=== PATIENT | female | born 1985 | race Caucasian/White ===

== ENCOUNTER 2017-05-22 05:58 | Inpatient (IN) | payer MEDICAID ==
[~2017-05-22 05:58] MED LIST: Lactated Ringers 1,000 ML IV SCH; Sodium Chloride 0.9% 10 ML Syringe FLUSH PRN
[2017-05-22] MEDS ORDERED: Metoclopramide 10 MG/2 ML SDV IVPUSH ONE (06:00)
[2017-05-22] MEDS ORDERED: Oxytocin/Lactated Ringers 10 UNIT/1,000 ML BAG IV SCH (06:00)
[2017-05-22] MEDS ORDERED: ceFAZolin 2 GM in Premix Bag 1 BAG IV ONE (06:00)
[2017-05-22] MEDS ORDERED: Citric Acid/Sodium Citrate Solution 30 ML Cup PO ONE (06:00)
[2017-05-22] MEDS ORDERED: Bupivacaine 0.5% 30 ML SDV ONE (07:04)
[2017-05-22] MEDS ORDERED: ceFAZolin 1 GM Vial ONE (07:14)
[2017-05-22] MEDS ORDERED: Morphine PF 10 MG/10 ML SDV ONE (07:14)
[2017-05-22] MEDS ORDERED: Oxytocin 10 Units/1 ML SDV ONE ×2 (07:21→08:34)
[2017-05-22] MEDS ORDERED: Lactated Ringers 1,000 ML ONE (07:52)
[2017-05-22] MEDS ORDERED: Ketorolac 30 MG/ML SDV ONE (08:39)
[2017-05-22] MEDS ORDERED: fentaNYL 100 MCG/2 ML SDV IVPUSH PRN (08:57)
[2017-05-22] MEDS ORDERED: diphenhydrAMINE 50 MG/ML SDV IVPUSH PRN ×2 (08:57→11:25)
--- NOTE | 2017-05-22 08:59 | PCM.POSTAN ---
POST ANESTHESIA ASSESSMENT - MENTAL STATUS Mental Status: Alert, Oriented - VITAL SIGNS Pulse Rate: 88 SaO2: 98 Resp Rate: 16 Blood Pressure: 101/64 Temperature: 36.3 C - RESPIRATORY Respiratory Status: Respiratory Rate WNL, Airway Patent, O2 Saturation Stable, Supplemental Oxygen - CARDIOVASCULAR CV Status: Pulse Rate WNL, Blood Pressure Stable - GASTROINTESTINAL GI Status: No Symptoms - PAIN Pain Score: 0 - POST OP HYDRATION Hydration Status: Adequate & Stable - OBSERVATIONS Free Text/Narrative:: no anesthesia complications noted
--- NOTE | 2017-05-22 09:07 | PCM.OPNOTE ---
- General Post-Op/Procedure Note Date of Surgery/Procedure: 05/22/17 Operative Procedure(s): repeat section Findings: Viable male, Weight 6#15oz, normal uterus tubes ovaries, vertex at 0814 Pre Op Diagnosis: prior , desires repeat Post-Op Diagnosis: Same Anesthesia Technique: Spinal Primary Surgeon: Amara Davis Anesthesia Provider: Yaya Oakley Ultrasonic Seaming Machine Operator: Eli Freed Ultrasonic Seaming Machine Operator: Darcy Blackwell Fluid Replacement, Intraop: 2,500 Output, Urine Amount: 30 Complications: None Condition: Good Free Text/Narrative:: The patient was taken to the operating room where epidural anesthesia was dosed to surgical levels without difficulty. The patient was prepped and draped in the usual sterile fashion in the dorsal supine position with a leftward tilt. A Pfannenstiel skin incision was made with the scalpel and carried through to the underlying layer of fascia. The fascia was incised in the midline and extended laterally using Gonzalez scissors. Mariya clamps were used to elevate the superior aspect of the fascial incision, which was elevated, and the underlying rectus muscles were dissected off bluntly and using Gonzalez scissors. Attention was then turned to the inferior aspect of the fascial incision, which in similar fashion was grasped with Mariya clamps, elevated, and the underlying rectus muscles were dissected off bluntly and using the gonzalez. The rectus muscles were dissected in the midline. The peritoneum was entered bluntly; this incision was extended superiorly and inferiorly with good visualization of the bladder. The bladder blade was inserted. The vesicouterine peritoneum was identified and entered sharply using Metzenbaum scissors. This incision was extended laterally and the bladder flap was created digitally. The bladder blade was reinserted. The lower uterine segment was incised in a transverse fashion using the scalpel and with digital traction. Clear fluid was noted. The was subsequently delivered by flexing the head to the incision. Body and shoulders followed without difficulty. The cord was clamped and cut. The infant was subsequently handed to the awaiting deputy district customs director whose presence had been requested.. The placenta was delivered spontaneously intact with a three-vessel cord noted. The uterus was exteriorized and cleared of all clots and debris. The uterine incision was repaired in 2 layers using 0 monocryl. Hemostasis was visualized. Hemostasis was visualized bilaterally. The uterus was returned to the abdomen. The uterine incision was reexamined and it was noted to be hemostatic. The pelvis was copiously irrigated. The fascia was closed with 1 PDS suture, and the skin was closed with 3-0 monocryl. Sponge, lap, and instrument counts were correct x2. The patient was stable at the completion of the procedure and was subsequently transferred to the recovery room in stable condition.
[2017-05-22] MEDS ORDERED: Naloxone 0.4 MG/ML SDV IVPUSH PRN (11:25)
[2017-05-22] MEDS ORDERED: ePHEDrine 50 MG/ML SDV IVPUSH PRN (11:25)
[2017-05-22] MEDS ORDERED: Lanolin 100% Cream 7 GM Tube TOP PRN (11:25)
[2017-05-22] MEDS: Lactated Ringers 1,000 ML IV SCH ×2 (12:15→16:03)
[2017-05-22] MEDS: Acetaminophen/oxyCODONE 325-5 MG Tab PO PRN ×3 (12:15→23:38)
[2017-05-22] MEDS: Ketorolac 30 MG/ML SDV IVPUSH SCH ×2 (15:24→21:27)
[2017-05-23] MEDS: Ketorolac 30 MG/ML SDV IVPUSH SCH (03:33)
[2017-05-23] MEDS: Acetaminophen/oxyCODONE 325-5 MG Tab PO PRN ×2 (05:41→12:45)
--- NOTE | 2017-05-23 08:59 | PCM.PNPP ---
- General Info Date of Service: 05/23/17 - Review of Systems General: Reports: No Symptoms HEENT: Reports: No Symptoms Pulmonary: Reports: No Symptoms Cardiovascular: Reports: No Symptoms Gastrointestinal: Reports: No Symptoms Genitourinary: Reports: No Symptoms Musculoskeletal: Reports: No Symptoms Skin: Reports: No Symptoms Neurological: Reports: No Symptoms Psychiatric: Reports: No Symptoms - General Info Date of Service: 05/23/17 - Patient Data Vital Signs - Most Recent: Last Vital Signs Temp 36.5 C 05/23/17 03:59 Pulse 96 05/23/17 03:39 Resp 17 05/23/17 06:58 BP 103/63 05/23/17 03:37 Pulse Ox 98 05/23/17 06:58 Weight - Most Recent: 87.09 kg I&O - Last 24 Hours: Intake & Output 05/22/17 05/23/17 05/23/17 22:59 06:59 14:59 Intake Total 1480 Output Total 775 800 Balance 705 -800 Lab Results - Last 24 Hours: Laboratory Results - last 24 hr 05/23/17 Range/Units 05:50 WBC 8.40 (3.98-10.04) K/mm3 RBC 3.09 L (3.98-5.22) M/mm3 Hgb 7.9 L (11.2-15.7) gm/L Hct 26.0 L (34.1-44.9) % MCV 84.1 (79.4-94.8) fl MCH 25.6 (25.6-32.2) pg MCHC 30.4 L (32.2-35.5) g/dl RDW Std Deviation 41.2 (36.4-46.3) fL Plt Count 178 L (182-369) K/mm3 MPV 11.4 (9.4-12.3) fl Neut % (Auto) 71.5 H (34.0-71.1) % Lymph % (Auto) 19.5 (19.3-51.7) % Clinch % (Auto) 7.5 (4.7-12.5) % Eos % (Auto) 1.1 (0.7-5.8) Baso % (Auto) 0.2 (0.1-1.2) % Neut # (Auto) 6.00 (1.56-6.13) K/mm3 Lymph # (Auto) 1.64 (1.18-3.74) K/mm3 Clinch # (Auto) 0.63 H (0.24-0.36) K/mm3 Eos # (Auto) 0.09 (0.04-0.36) K/mm3 Baso # (Auto) 0.02 (0.01-0.08) K/mm3 Manual Slide Review Abnormal smear Med Orders - Current: Current Medications Diphenhydramine HCl (Benadryl) 25 mg IVPUSH Q6H PRN PRN Reason: Itching or Nausea Emollient Ointment (Lansinoh Hpa) 0 gm TOP ASDIRECTED PRN PRN Reason: Sore Nipples Ephedrine Sulfate (Ephedrine Sulfate) 5 mg IVPUSH SEECOMMENT PRN PRN Reason: Other Lactated Ringer's (Ringers, Lactated) 1,000 mls @ 125 mls/hr IV ASDIRECTED OSMEL Last Admin: 05/22/17 16:03 Dose: 125 mls/hr Ibuprofen (Motrin) 600 mg PO Q6H PRN PRN Reason: mild pain or fever Naloxone HCl (Narcan) 0.1 mg IVPUSH SEECOMMENT PRN PRN Reason: Respiratory Depression Oxycodone/Acetaminophen (Percocet 325-5 Mg) 2 tab PO Q6H PRN PRN Reason: Pain (moderate 4-6) Last Admin: 05/23/17 05:41 Dose: 2 tab Discontinued Medications Bupivacaine HCl (Marcaine 0.5%) Confirm Administered Dose 30 ml .ROUTE .STK-MED ONE Stop: 05/22/17 07:05 Last Admin: 05/22/17 09:48 Dose: 20 ml Cefazolin Sodium (Ancef) Confirm Administered Dose 2 gm .ROUTE .STK-MED ONE Stop: 05/22/17 07:15 Citric Acid/Sodium Citrate (Bicitra Solution) 30 ml PO ONETIME ONE Stop: 05/22/17 06:01 Diphenhydramine HCl (Benadryl) 25 mg IVPUSH Q6H PRN PRN Reason: Itching Stop: 05/22/17 11:00 Fentanyl (Sublimaze) 50 mcg IVPUSH Q5M PRN PRN Reason: PAIN Stop: 05/22/17 11:00 Cefazolin Sodium/Dextrose 2 gm (/ Premix) 50 mls @ 100 mls/hr IV ONETIME ONE Stop: 05/22/17 06:29 Lactated Ringer's (Ringers, Lactated) 1,000 mls @ 999 mls/hr IV ASDIRECTED [facility] Oxytocin/Lactated Ringer's (Pitocin In Lr 10 Units/1,000 Ml) 10 unit in 1,000 mls @ 100 mls/hr IV ASDIRECTED [facility] Lactated Ringer's (Ringers, Lactated) Confirm Administered Dose 1,000 mls @ as directed .ROUTE .STK-MED ONE Stop: 05/22/17 07:53 Ketorolac Tromethamine (Toradol) Confirm Administered Dose 30 mg .ROUTE .STK- MED ONE Stop: 05/22/17 08:40 Ketorolac Tromethamine (Toradol) 30 mg IVPUSH Q6H O[facility] Stop: 05/23/17 03:01 Last Admin: 05/23/17 03:33 Dose: 30 mg Metoclopramide HCl (Reglan) 10 mg IVPUSH ONETIME ONE Stop: 05/22/17 06:01 Morphine Sulfate (Duramorph Pf) Confirm Administered Dose 10 mg .ROUTE .STK-MED ONE Stop: 05/22/17 07:15 Oxytocin (Pitocin) Confirm Administered Dose 10 unit .ROUTE .STK-MED ONE Stop: 05/22/17 07:22 Oxytocin (Pitocin) Confirm Administered Dose 10 unit .ROUTE .STK-MED ONE Stop: 05/22/17 08:35 Sodium Chloride (Saline Flush) 10 ml FLUSH ASDIRECTED PRN PRN Reason: Keep Vein Open - Infant Interaction Support Person: - Recovery Exam Fundal Tone: Firm Fundal Level: At Umbilicus Fundal Placement: Midline Lochia Amount: Scant, Small Lochia Color: Rubra/Red Perineum Description: Intact, Minimal Bruising/Swelling Bladder Status: Indwelling Catheter in Place - Exam General: Alert, Oriented HEENT: Pupils Equal Neck: Supple Lungs: Clear to Auscultation, Normal Respiratory Effort Cardiovascular: Regular Rate, Regular Rhythm GI/Abdominal Exam: Normal Bowel Sounds, Soft, Non-Tender, No Organomegaly, No Distention, No Abnormal Bruit, No Mass, Pelvis Stable Extremities: Normal Inspection, Normal Range of Motion, Non-Tender, No Pedal Edema, Normal Capillary Refill Skin: Warm, Dry, Intact Wound/Incisions: Healing Well Neurological: No New Focal Deficit Psy/Mental Status: Alert, Normal Affect, Normal Mood - Problem List Review Problem List Initiated/Reviewed/Updated: Yes - My Orders Last 24 Hours: My Active Orders 05/22/17 11:25 Communication Order [RC] PER UNIT ROUTINE Communication Order [RC] PER UNIT ROUTINE Communication Order [RC] PER UNIT ROUTINE Notify Provider Intake and Out [RC] ASDIRECTED Vital Signs [RC] Q1HR Acetaminophen/oxyCODONE [Percocet 325-5 MG] 2 tab PO Q6H PRN Lanolin [Lansinoh HPA] See Dose Instructions TOP ASDIRECTED PRN Naloxone [Narcan] 0.1 mg IVPUSH SEECOMMENT PRN diphenhydrAMINE [Benadryl] 25 mg IVPUSH Q6H PRN ePHEDrine [ePHEDrine Sulfate] 5 mg IVPUSH SEECOMMENT PRN Assess Lochia [WOMSER] Per Unit Routine Assess Uterine Involution [WOMSER] Per Unit Routine Medication Administration Instruction [OM.PC] Routine 05/22/17 12:00 Lactated Ringers [Ringers, Lactated] 1,000 ml IV ASDIRECTED 05/22/17 Lunch Regular Diet [DIET] 05/23/17 09:00 Ibuprofen [Motrin] 600 mg PO Q6H PRN - Assessment Assessment:: Doing great. Tearful. Normal lochia. Pain controlled. Tolerating diet. Voiding well. - Plan Plan:: Routine care.
--- NOTE | 2017-05-23 09:28 | PCM48HPAN ---
Post Anesthesia Note - EVALUATION WITHIN 48HRS OF ANESTHETIC Vital Signs in Normal Range: Yes Patient Participated in Evaluation: Yes Respiratory Function Stable: Yes Airway Patent: Yes Cardiovascular Function Stable: Yes Hydration Status Stable: Yes Pain Control Satisfactory: Yes Nausea and Vomiting Control Satisfactory: Yes Mental Status Recovered: Yes - COMMENTS/OBSERVATIONS Free Text/Narrative:: Patient up and walking around. Denies back pain, residual numbness and tingling in her legs, and headache. Satisfied with her pain control.
[2017-05-23] MEDS: Ibuprofen 600 MG Tab PO PRN ×2 (09:47→15:52)
--- NOTE | 2017-05-23 13:17 | PCM.DCSUM1 ---
Discharge Summary - Discharge Data Discharge Date: 05/23/17 Discharge Disposition: Home, Self-Care 01 Condition: Good - Patient Summary/Data Operative Procedure(s) Performed: repeat section Hospital Course: Term . Recovering well. Baby transferred to assumption for respiratory issues. Mom desires discharge. - Patient Instructions Diet: Usual Diet as Tolerated Activity: No Strenuous Activities Driving: Do Not Drive Wound/Incision Care: Keep Operative Site/Wound Site Clean and Dry Notify Provider of: Fever, Increased Pain, Swelling and Redness, Drainage, Nausea and/or Vomiting - Discharge Plan Prescriptions/Med Rec: Docusate Sodium [Colace] 100 mg PO BID #20 capsule Home Medications: Home Meds Acetaminophen/oxyCODONE [Percocet 325-5 MG] 2 tab PO Q6H PRN #0 tablet 05/23/17 [Rx] Docusate Sodium [Colace] 100 mg PO BID #20 capsule 05/23/17 [Rx] Ibuprofen [IJD: Ibuprofen] 600 mg PO Q6H PRN tablet 05/23/17 [Rx] Lanolin [Lansinoh HPA] 7 gm TOP ASDIRECTED PRN tube 05/23/17 [Rx] Patient Handouts: Depression and Baby Blues, Delivery, Care After, Breast Pumping Tips, [id number], Challenges and Solutions Referrals: Amara Davis MD [Physician] - (2 weeks, 6 weeks) - Patient Data Vitals - Most Recent: Last Vital Signs Temp 36.4 C 05/23/17 08:00 Pulse 93 05/23/17 08:00 Resp 14 05/23/17 08:00 BP 99/67 05/23/17 08:00 Pulse Ox 99 05/23/17 08:00 Weight - Most Recent: 87.09 kg I&O - Last 24 hours: Intake & Output 05/22/17 05/23/17 05/23/17 22:59 06:59 14:59 Intake Total 1480 2500 Output Total 775 800 30 Balance 705 -800 2470 Lab Results - Last 24 hrs: Laboratory Results - last 24 hr 05/23/17 Range/Units 05:50 WBC 8.40 (3.98-10.04) K/mm3 RBC 3.09 L (3.98-5.22) M/mm3 Hgb 7.9 L (11.2-15.7) gm/L Hct 26.0 L (34.1-44.9) % MCV 84.1 (79.4-94.8) fl MCH 25.6 (25.6-32.2) pg MCHC 30.4 L (32.2-35.5) g/dl RDW Std Deviation 41.2 (36.4-46.3) fL Plt Count 178 L (182-369) K/mm3 MPV 11.4 (9.4-12.3) fl Neut % (Auto) 71.5 H (34.0-71.1) % Lymph % (Auto) 19.5 (19.3-51.7) % Millard % (Auto) 7.5 (4.7-12.5) % Eos % (Auto) 1.1 (0.7-5.8) Baso % (Auto) 0.2 (0.1-1.2) % Neut # (Auto) 6.00 (1.56-6.13) K/mm3 Lymph # (Auto) 1.64 (1.18-3.74) K/mm3 Millard # (Auto) 0.63 H (0.24-0.36) K/mm3 Eos # (Auto) 0.09 (0.04-0.36) K/mm3 Baso # (Auto) 0.02 (0.01-0.08) K/mm3 Manual Slide Review Abnormal smear Med Orders - Current: Current Medications Diphenhydramine HCl (Benadryl) 25 mg IVPUSH Q6H PRN PRN Reason: Itching or Nausea Emollient Ointment (Lansinoh Hpa) 0 gm TOP ASDIRECTED PRN PRN Reason: Sore Nipples Ephedrine Sulfate (Ephedrine Sulfate) 5 mg IVPUSH SEECOMMENT PRN PRN Reason: Other Lactated Ringer's (Ringers, Lactated) 1,000 mls @ 125 mls/hr IV ASDIRECTED OSMEL Last Admin: 05/22/17 16:03 Dose: 125 mls/hr Ibuprofen (Motrin) 600 mg PO Q6H PRN PRN Reason: mild pain or fever Last Admin: 05/23/17 09:47 Dose: 600 mg Naloxone HCl (Narcan) 0.1 mg IVPUSH SEECOMMENT PRN PRN Reason: Respiratory Depression Oxycodone/Acetaminophen (Percocet 325-5 Mg) 2 tab PO Q6H PRN PRN Reason: Pain (moderate 4-6) Last Admin: 05/23/17 05:41 Dose: 2 tab Discontinued Medications Bupivacaine HCl (Marcaine 0.5%) Confirm Administered Dose 30 ml .ROUTE .STK-MED ONE Stop: 05/22/17 07:05 Last Admin: 05/22/17 09:48 Dose: 20 ml Cefazolin Sodium (Ancef) Confirm Administered Dose 2 gm .ROUTE .STK-MED ONE Stop: 05/22/17 07:15 Citric Acid/Sodium Citrate (Bicitra Solution) 30 ml PO ONETIME ONE Stop: 05/22/17 06:01 Diphenhydramine HCl (Benadryl) 25 mg IVPUSH Q6H PRN PRN Reason: Itching Stop: 05/22/17 11:00 Fentanyl (Sublimaze) 50 mcg IVPUSH Q5M PRN PRN Reason: PAIN Stop: 05/22/17 11:00 Cefazolin Sodium/Dextrose 2 gm (/ Premix) 50 mls @ 100 mls/hr IV ONETIME ONE Stop: 05/22/17 06:29 Lactated Ringer's (Ringers, Lactated) 1,000 mls @ 999 mls/hr IV ASDIRECTED [facility] Oxytocin/Lactated Ringer's (Pitocin In Lr 10 Units/1,000 Ml) 10 unit in 1,000 mls @ 100 mls/hr IV ASDIRECTED [facility] Lactated Ringer's (Ringers, Lactated) Confirm Administered Dose 1,000 mls @ as directed .ROUTE .STK-MED ONE Stop: 05/22/17 07:53 Ketorolac Tromethamine (Toradol) Confirm Administered Dose 30 mg .ROUTE .STK- MED ONE Stop: 05/22/17 08:40 Ketorolac Tromethamine (Toradol) 30 mg IVPUSH Q6H [facility] Stop: 05/23/17 03:01 Last Admin: 05/23/17 03:33 Dose: 30 mg Metoclopramide HCl (Reglan) 10 mg IVPUSH ONETIME ONE Stop: 05/22/17 06:01 Morphine Sulfate (Duramorph Pf) Confirm Administered Dose 10 mg .ROUTE .STK-MED ONE Stop: 05/22/17 07:15 Oxytocin (Pitocin) Confirm Administered Dose 10 unit .ROUTE .STK-MED ONE Stop: 05/22/17 07:22 Oxytocin (Pitocin) Confirm Administered Dose 10 unit .ROUTE .STK-MED ONE Stop: 05/22/17 08:35 Sodium Chloride (Saline Flush) 10 ml FLUSH ASDIRECTED PRN PRN Reason: Keep Vein Open *Q Meaningful Use (DIS) - VTE *Q VTE Criteria *Q: - Stroke *Q Stroke Criteria *Q: - AMI *Q AMI Criteria *Q:
[2017-05-23 14:26] VITALS: BP 107/72
== END 2017-05-23 15:55 | disposition home or self-care (01) | DRG 766 ==
LOC: JD.OB 05:58
PROVIDERS: ADMIT Obstetrics & Gynecology; ATTEND Obstetrics & Gynecology
PROC: 10D00Z1 Extraction of Products of Conception, Low, Open Approach (ICD-10-PCS; principal; 2017-05-22)
DX: O34.211 Maternal care for low transverse scar from previous cesarean delivery (principal); N85.8 Other specified noninflammatory disorders of uterus; Z3A.38 38 weeks gestation of pregnancy; Z37.0 Single live birth
CPT/HCPCS: 01961; 36415; 85025; A9270-GY; J0690; J1885; J2270; J2590; J7120

== ENCOUNTER 2018-05-02 05:23 | Inpatient (IN) | payer MEDICAID ==
[~2018-05-02 05:23] MED LIST changes: -Lactated Ringers 1,000 ML IV SCH
[2018-05-02] MEDS ORDERED: Metoclopramide 10 MG/2 ML SDV IVPUSH ONE (06:00)
[2018-05-02] MEDS: Lactated Ringers 1,000 ML IV SCH ×2 (06:12→07:01)
--- NOTE | 2018-05-02 06:40 | PCM.PREANE ---
Preanesthetic Assessment - Anesthesia/Transfusion/Family Hx Anesthesia History: Prior Anesthesia Without Reaction - Review of Systems General: No Symptoms Pulmonary: No Symptoms Cardiovascular: No Symptoms Gastrointestinal: No Symptoms Neurological: No Symptoms Other: Reports: None - Physical Assessment NPO Status Date: 05/01/18 NPO Status Time: 23:59 Pulse: 109 O2 Sat by Pulse Oximetry: 97 Respiratory Rate: 15 Blood Pressure: 114/74 Temperature: 98.1 F Vital Signs: Last Vital Signs Temp 98.1 F 05/02/18 05:43 Pulse 109 H 05/02/18 05:43 Resp 15 05/02/18 05:43 BP 114/74 05/02/18 05:43 Pulse Ox 97 05/02/18 05:43 Height: 1.63 m Weight: 87.997 kg ASA Class: 2 Mental Status: Alert & Oriented x3 Airway Class: Mallampati = 3 Dentition: Reports: Normal Dentition Thyro-Mental Finger Breadths: 3 Mouth Opening Finger Breadths: 3 ROM/Head Extension: Full Lungs: Clear to Auscultation Cardiovascular: Regular Rate - Allergies Allergies/Adverse Reactions: Allergies Allergy/AdvReac Type Severity Reaction Status Date / Time No Known Allergies Allergy Verified 05/22/17 07:25 - Acknowledgements Anesthesia Type Planned: Spinal Pt an Appropriate Candidate for the Planned Anesthesia: Yes Alternatives and Risks of Anesthesia Discussed w Pt/Guardian: Yes Pt/Guardian Understands and Agrees with Anesthesia Plan: Yes PreAnesthesia Questionnaire HEENT History: Reports: Other (See Below) Other HEENT History: wears glasses Genitourinary History: Reports: Renal Calculus, UTI, 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, Neurological History: Reports: Other (See Below) (reports cervical disc herniation, no related neurological symptoms reported) Hematologic History: Reports: Anemia, Iron Deficiency - Infectious Disease History Infectious Disease History: Reports: Human Papilloma Virus (HPV) - Past Surgical History Female Surgical History: Reports: Breast Implant, Breast Reconstruction ( breast augmentation), Section (x2 07/12/2006, 05/22/2017), Kidney stone extraction - HOME MEDS Home Medications: Home Meds Acetaminophen [Tylenol] 650 mg PO Q4H PRN 05/02/18 [History] Acyclovir 400 mg PO TID 05/02/18 [History] PNV95/Ferrous Fumarate/FA [ Tablet] 1 tab PO DAILY 05/02/18 [History] - CURRENT (IN HOUSE) MEDS Current Meds: Current Medications Cefazolin Sodium/Dextrose 2 gm (/ Premix) 50 mls @ 100 mls/hr IV ONETIME ONE Stop: 05/02/18 07:29 Lactated Ringer's (Ringers, Lactated) 1,000 mls @ 125 mls/hr IV ASDIRECTED O[facility] Last Admin: 05/02/18 06:12 Dose: 125 mls/hr Oxytocin/Lactated Ringer's (Pitocin In Lr 10 Units/1,000 Ml) 10 unit in 1,000 mls @ 100 mls/hr IV ASDIRECTED OSMEL; Protocol Sodium Chloride (Saline Flush) 10 ml FLUSH ASDIRECTED PRN PRN Reason: Keep Vein Open Discontinued Medications Citric Acid/Sodium Citrate (Bicitra Solution) 30 ml PO ONETIME ONE Stop: 05/02/18 06:01 Metoclopramide HCl (Reglan) 10 mg IVPUSH ONETIME ONE Stop: 05/02/18 06:01
[2018-05-02] MEDS ORDERED: Oxytocin/Lactated Ringers 10 UNIT/1,000 ML BAG IV SCH (07:00)
[2018-05-02] MEDS ORDERED: ceFAZolin 2 GM in Premix Bag 1 BAG IV ONE (07:00)
[2018-05-02] MEDS: Citric Acid/Sodium Citrate Solution 30 ML Cup PO ONE ×2 (07:01→12:17)
[2018-05-02] MEDS ORDERED: diphenhydrAMINE 50 MG/ML SDV IV ONE (07:10)
[2018-05-02] MEDS ORDERED: Bupivacaine 0.5% 30 ML SDV ONE ×2 (07:10→12:09)
[2018-05-02] MEDS ORDERED: Acetaminophen 325 MG Tab PO ONE (07:10)
[2018-05-02] MEDS ORDERED: Sodium Chloride 0.9% 1,000 ML IV SCH (07:15)
[2018-05-02] MEDS ORDERED: Morphine PF 1 MG/ML Amp ONE (08:15)
[2018-05-02] MEDS ORDERED: Citric Acid/Sodium Citrate Solution 30 ML Cup ONE (12:16)
[2018-05-02] MEDS ORDERED: Lactated Ringers 1,000 ML ONE (12:37)
[2018-05-02] MEDS ORDERED: ceFAZolin 1 GM Vial ONE (12:37)
[2018-05-02] MEDS ORDERED: Oxytocin 10 Units/1 ML SDV ONE (12:37)
[2018-05-02] MEDS ORDERED: Midazolam 1 MG/ML 2 ML SDV ONE (13:00)
[2018-05-02] MEDS ORDERED: fentaNYL 100 MCG/2 ML SDV ONE (13:10)
--- NOTE | 2018-05-02 13:33 | PCM.POSTAN ---
POST ANESTHESIA ASSESSMENT - MENTAL STATUS Mental Status: Alert, Oriented - VITAL SIGNS Pulse Rate: 76 SaO2: 96 Resp Rate: 20 Blood Pressure: 115/55 Temperature: 98.9 F - RESPIRATORY Respiratory Status: Respiratory Rate WNL, Airway Patent, O2 Saturation Stable - CARDIOVASCULAR CV Status: Pulse Rate WNL, Blood Pressure Stable - GASTROINTESTINAL GI Status: No Symptoms - PAIN Pain Score: 0 - POST OP HYDRATION Hydration Status: Adequate & Stable
--- NOTE | 2018-05-02 13:41 | PCM.OPNOTE ---
- General Post-Op/Procedure Note Date of Surgery/Procedure: 05/02/18 Operative Procedure(s): repeat section Findings: Viable male, weight 8#9oz, 8/8 apgars, normal uterus tubes and ovaries, thin lower uterine segment Pre Op Diagnosis: prior desires repeat Post-Op Diagnosis: Same Primary Surgeon: Kristine Roberson Anesthesia Provider: Abiodun Sims Supervisor Evaporator: Eli Freed Fluid Replacement, Intraop: 2,500 Output, Urine Amount: 200 EBL in mLs: 450 Complications: None Condition: Good Free Text/Narrative:: Intake & Output 05/01/18 05/02/18 05/02/18 22:59 06:59 14:59 Intake Total 720 Balance 720 The patient was taken to the operating room where epidural anesthesia was dosed to surgical levels without difficulty. The patient was prepped and draped in the usual sterile fashion in the dorsal supine position with a leftward tilt. A Pfannenstiel skin incision was made with the scalpel and carried through to the underlying layer of fascia. The fascia was incised in the midline and extended laterally using Gonzalez scissors. Mariya clamps were used to elevate the superior aspect of the fascial incision, which was elevated, and the underlying rectus muscles were dissected off bluntly and using Gonzalez scissors. Attention was then turned to the inferior aspect of the fascial incision, which in similar fashion was grasped with Mariya clamps, elevated, and the underlying rectus muscles were dissected off bluntly and using the gonzalez. The rectus muscles were dissected in the midline. The peritoneum was entered bluntly; this incision was extended superiorly and inferiorly with good visualization of the bladder. The bladder blade was inserted. The vesicouterine peritoneum was identified and entered sharply using Metzenbaum scissors. This incision was extended laterally and the bladder flap was created digitally. The bladder blade was reinserted. The lower uterine segment was incised in a transverse fashion using the scalpel and with digital traction. Clear fluid was noted. The was subsequently delivered by flexing the head to the incision. Body and shoulders followed without difficulty. The cord was clamped and cut. The infant was subsequently handed to the awaiting anthropology professor whose presence had been requested.. The placenta was delivered spontaneously intact with a three-vessel cord noted. The uterus was exteriorized and cleared of all clots and debris. The uterine incision was repaired in 2 layers using 0 monocryl. Hemostasis was visualized. Hemostasis was visualized bilaterally. The uterus was returned to the abdomen. The uterine incision was reexamined and it was noted to be hemostatic. The pelvis was copiously irrigated. The fascia was closed with 1 PDS suture, and the skin was closed with 3-0 monocryl. Sponge, lap, and instrument counts were correct x2. The patient was stable at the completion of the procedure and was subsequently transferred to the recovery room in stable condition.
--- NOTE | 2018-05-02 13:42 | PCM.SN ---
- Free Text/Narrative Note: Admission h/h 7.5. After conversation with anesthesia decision to transfuse 2u prbc and recheck hgb prior to surgery.
[2018-05-02] MEDS ORDERED: Naloxone 0.4 MG/ML SDV IVPUSH PRN (15:57)
[2018-05-02] MEDS ORDERED: Lanolin 100% Cream 7 GM Tube TOP PRN (15:57)
[2018-05-02] MEDS ORDERED: ePHEDrine 50 MG/ML SDV IVPUSH PRN (15:57)
[2018-05-02] MEDS ORDERED: diphenhydrAMINE 50 MG/ML SDV IVPUSH PRN (15:57)
[2018-05-02] MEDS: Ketorolac 30 MG/ML SDV IVPUSH SCH ×2 (17:09→22:50)
[2018-05-02] MEDS ORDERED: Citric Acid/Sodium Citrate Solution 30 ML Cup PO ONE (18:55)
[2018-05-02] MEDS: Acetaminophen/oxyCODONE 325-5 MG Tab PO PRN (20:40)
[2018-05-03] MEDS: Ketorolac 30 MG/ML SDV IVPUSH SCH (05:01)
[2018-05-03] MEDS: Acetaminophen/oxyCODONE 325-5 MG Tab PO PRN ×3 (06:37→19:43)
--- NOTE | 2018-05-03 07:36 | PCM.PNPP ---
- General Info Date of Service: 05/03/18 Functional Status: Reports: Pain Controlled, Tolerating Diet, Ambulating - Review of Systems General: Reports: No Symptoms Pulmonary: Reports: No Symptoms Cardiovascular: Reports: No Symptoms Gastrointestinal: Reports: Abdominal Pain (manageable with medications ) Genitourinary: Reports: No Symptoms Musculoskeletal: Reports: No Symptoms Neurological: Reports: No Symptoms - Patient Data Vital Signs - Most Recent: Last Vital Signs Temp 36.7 C 05/03/18 05:02 Pulse 94 05/03/18 05:02 Resp 14 05/03/18 05:02 BP 119/68 05/03/18 05:02 Pulse Ox 97 05/03/18 05:02 Weight - Most Recent: 87.997 kg I&O - Last 24 Hours: Intake & Output 05/02/18 05/03/18 05/03/18 22:59 06:59 14:59 Intake Total 6190 600 Output Total 625 1750 Balance 5565 -1150 Lab Results - Last 24 Hours: Laboratory Results - last 24 hr 05/02/18 05/02/18 05/02/18 Range/Units 06:00 06:00 06:04 WBC (3.98-10.04) K/mm3 RBC (3.98-5.22) M/mm3 Hgb (11.2-15.7) gm/L Hct (34.1-44.9) % MCV (79.4-94.8) fl MCH (25.6-32.2) pg MCHC (32.2-35.5) g/dl RDW Std Deviation (36.4-46.3) fL Plt Count (182-369) K/mm3 MPV (9.4-12.3) fl Neut % (Auto) (34.0-71.1) % Lymph % (Auto) (19.3-51.7) % [place] % (Auto) (4.7-12.5) % Eos % (Auto) (0.7-5.8) Baso % (Auto) (0.1-1.2) % Neut # (Auto) (1.56-6.13) K/mm3 Lymph # (Auto) (1.18-3.74) K/mm3 [place] # (Auto) (0.24-0.36) K/mm3 Eos # (Auto) (0.04-0.36) K/mm3 Baso # (Auto) (0.01-0.08) K/mm3 Manual Slide Review Urine RBC 0-5 (0-5) /hpf Urine WBC 0-5 (0-5) /hpf Ur Epithelial Cells 0-5 (0-5) /hpf Urine Bacteria Few (FEW) /hpf Urine Mucus Many H (FEW) /hpf Urine Opiates Screen Negative (NEGATIVE) Ur Buprenorphine Scrn Negative (NEGATIVE) Ur Oxycodone Screen Presumptive positive H (NEGATIVE) Urine Methadone Screen Negative (NEGATIVE) Ur Propoxyphene Screen Negative (NEGATIVE) Ur Barbiturates Screen Negative (NEGATIVE) Ur Tricyclics Screen Negative (NEGATIVE) Ur Phencyclidine Scrn Negative (NEGATIVE) Ur Amphetamine Screen Negative (NEGATIVE) U Methamphetamines Scrn Negative (NEGATIVE) U Benzodiazepines Scrn Negative (NEGATIVE) U Cocaine Metab Screen Negative (NEGATIVE) U Marijuana (THC) Screen Presumptive positive H (NEGATIVE) RPR Non-reactive (NONREACTIVE) Blood Type Gel Antibody Screen Crossmatch 05/02/18 05/02/18 05/03/18 Range/Units 06:04 11:37 06:18 WBC 11.47 H 12.85 H (3.98-10.04) K/mm3 RBC 4.00 3.95 L (3.98-5.22) M/mm3 Hgb 8.7 L 8.5 L (11.2-15.7) gm/L Hct 29.1 L 28.6 L (34.1-44.9) % MCV 72.8 L 72.4 L (79.4-94.8) fl MCH 21.8 L 21.5 L (25.6-32.2) pg MCHC 29.9 L 29.7 L (32.2-35.5) g/dl RDW Std Deviation 46.7 H 46.8 H (36.4-46.3) fL Plt Count 279 238 (182-369) K/mm3 MPV 10.4 9.9 (9.4-12.3) fl Neut % (Auto) 74.4 H 81.1 H (34.0-71.1) % Lymph % (Auto) 18.3 L 9.6 L (19.3-51.7) % [place] % (Auto) 6.2 8.6 (4.7-12.5) % Eos % (Auto) 0.3 L 0.3 L (0.7-5.8) Baso % (Auto) 0.3 0.2 (0.1-1.2) % Neut # (Auto) 8.52 H 10.43 H (1.56-6.13) K/mm3 Lymph # (Auto) 2.10 1.23 (1.18-3.74) K/mm3 [place] # (Auto) 0.71 H 1.10 H (0.24-0.36) K/mm3 Eos # (Auto) 0.04 0.04 (0.04-0.36) K/mm3 Baso # (Auto) 0.04 0.02 (0.01-0.08) K/mm3 Manual Slide Review Abnormal smear Abnormal smear Urine RBC (0-5) /hpf Urine WBC (0-5) /hpf Ur Epithelial Cells (0-5) /hpf Urine Bacteria (FEW) /hpf Urine Mucus (FEW) /hpf Urine Opiates Screen (NEGATIVE) Ur Buprenorphine Scrn (NEGATIVE) Ur Oxycodone Screen (NEGATIVE) Urine Methadone Screen (NEGATIVE) Ur Propoxyphene Screen (NEGATIVE) Ur Barbiturates Screen (NEGATIVE) Ur Tricyclics Screen (NEGATIVE) Ur Phencyclidine Scrn (NEGATIVE) Ur Amphetamine Screen (NEGATIVE) U Methamphetamines Scrn (NEGATIVE) U Benzodiazepines Scrn (NEGATIVE) U Cocaine Metab Screen (NEGATIVE) U Marijuana (THC) Screen (NEGATIVE) RPR (NONREACTIVE) Blood Type A POSITIVE Gel Antibody Screen Negative Crossmatch See Detail Med Orders - Current: Current Medications Diphenhydramine HCl (Benadryl) 25 mg IVPUSH Q6H PRN PRN Reason: Itching or Nausea Docusate Sodium (Colace) 100 mg PO Q12H PRN PRN Reason: Constipation Emollient Ointment (Lansinoh Hpa) 0 gm TOP ASDIRECTED PRN PRN Reason: Sore Nipples Ephedrine Sulfate (Ephedrine Sulfate) 5 mg IVPUSH SEECOMMENT PRN PRN Reason: Other Ibuprofen (Motrin) 600 mg PO Q6H PRN PRN Reason: mild pain or fever Naloxone HCl (Narcan) 0.1 mg IVPUSH SEECOMMENT PRN PRN Reason: Respiratory Depression Oxycodone/Acetaminophen (Percocet 325-5 Mg) 2 tab PO Q6H PRN PRN Reason: Pain (moderate 4-6) Last Admin: 05/03/18 06:37 Dose: 2 tab Discontinued Medications Acetaminophen (Tylenol) 650 mg PO NOW ONE Stop: 05/02/18 07:11 Last Admin: 05/02/18 08:20 Dose: 650 mg Bupivacaine HCl (Marcaine 0.5%) Confirm Administered Dose 30 ml .ROUTE .STK-MED ONE Stop: 05/02/18 07:11 Last Admin: 05/02/18 12:43 Dose: 18 ml Bupivacaine HCl (Marcaine 0.5%) Confirm Administered Dose 30 ml .ROUTE .STK-MED ONE Stop: 05/02/18 12:10 Cefazolin Sodium (Ancef) Confirm Administered Dose 2 gm .ROUTE .STK-MED ONE Stop: 05/02/18 12:38 Citric Acid/Sodium Citrate (Bicitra Solution) 30 ml PO ONETIME ONE Stop: 05/02/18 06:01 Last Admin: 05/02/18 12:17 Dose: 30 ml Citric Acid/Sodium Citrate (Bicitra Solution) Confirm Administered Dose 30 ml .ROUTE .STK-MED ONE Stop: 05/02/18 12:17 Last Admin: 05/02/18 18:55 Dose: Not Given Citric Acid/Sodium Citrate (Bicitra Solution) 30 ml PO ONETIME ONE Stop: 05/02/18 18:56 Last Admin: 05/02/18 18:59 Dose: Not Given Diphenhydramine HCl (Benadryl) 25 mg IV ONETIME ONE Stop: 05/02/18 07:11 Last Admin: 05/02/18 08:22 Dose: 25 mg Fentanyl (Sublimaze) Confirm Administered Dose 100 mcg .ROUTE .STK-MED ONE Stop: 05/02/18 13:11 Cefazolin Sodium/Dextrose 2 gm (/ Premix) 50 mls @ 100 mls/hr IV ONETIME ONE Stop: 05/02/18 07:29 Last Admin: 05/02/18 17:11 Dose: Not Given Lactated Ringer's (Ringers, Lactated) 1,000 mls @ 125 mls/hr IV ASDIRECTED OSMEL Last Admin: 05/02/18 07:01 Dose: 125 mls/hr Oxytocin/Lactated Ringer's (Pitocin In Lr 10 Units/1,000 Ml) 10 unit in 1,000 mls @ 100 mls/hr IV ASDIRECTED OSMEL; Protocol Sodium Chloride (Normal Saline) 1,000 mls @ 125 mls/hr IV ASDIRECTED OSMEL Lactated Ringer's (Ringers, Lactated) Confirm Administered Dose 1,000 mls @ as directed .ROUTE .STK-MED ONE Stop: 05/02/18 12:38 Ketorolac Tromethamine (Toradol) 30 mg IVPUSH Q6H OSMEL Stop: 05/03/18 04:01 Last Admin: 05/03/18 05:01 Dose: 30 mg Metoclopramide HCl (Reglan) 10 mg IVPUSH ONETIME ONE Stop: 05/02/18 06:01 Last Admin: 05/02/18 07:02 Dose: 10 mg Midazolam HCl (Versed 1 Mg/Ml) Confirm Administered Dose 2 mg .ROUTE .STK-MED ONE Stop: 05/02/18 13:01 Morphine Sulfate (Duramorph Pf) Confirm Administered Dose 1 mg .ROUTE .STK-MED ONE Stop: 05/02/18 08:16 Oxytocin (Pitocin) Confirm Administered Dose 10 unit .ROUTE .STK-MED ONE Stop: 05/02/18 12:38 Sodium Chloride (Saline Flush) 10 ml FLUSH ASDIRECTED PRN PRN Reason: Keep Vein Open - Interaction Disposition, : [place] in Room with Family Infant Interaction: Holding Infant Feeding: Attempted ; Nursed Fair/Poor Support Person: Significant Other - Recovery Exam Fundal Tone: Firm Fundal Level: At Umbilicus Fundal Placement: Midline Lochia Amount: Small Lochia Color: Rubra/Red Perineum Description: Intact, Minimal Bruising/Swelling Episiotomy/Laceration: None Bladder Status: Nonpalpable, Indwelling Catheter in Place Urinary Elimination: Indwelling Catheter - Exam General: Alert, Oriented, Cooperative Lungs: Clear to Auscultation, Normal Respiratory Effort Cardiovascular: Regular Rate, Regular Rhythm GI/Abdominal Exam: Soft, Tender (appropriate ) Extremities: Normal Inspection Skin: Warm, Dry, Intact Wound/Incisions: Dressing Dry and Intact - Problem List & Annotations (1) 39 weeks gestation of SNOMED Code(s): 93185982 Code(s): Z3A.39 - 39 WEEKS GESTATION OF Status: Acute Current Visit: Yes (2) S/P repeat low transverse SNOMED Code(s): 461061874, 15936031, 163063661, 974313126, 590512850 Code(s): Z98.891 - HISTORY OF UTERINE SCAR FROM PREVIOUS SURGERY Status: Acute Current Visit: Yes - Problem List Review Problem List Initiated/Reviewed/Updated: Yes - Assessment Assessment:: 32 y/o POD#1 from RLTCS - Plan Plan:: * CBC with appropriate drop from 8.7 pre-surgery to 8.5 post. No further monitoring needed * Routine cares * Encourage breast feeding * Discharge home in 1-2 days
--- NOTE | 2018-05-03 10:43 | PCM48HPAN ---
Post Anesthesia Note - EVALUATION WITHIN 48HRS OF ANESTHETIC Vital Signs in Normal Range: Yes Patient Participated in Evaluation: Yes Respiratory Function Stable: Yes Airway Patent: Yes Cardiovascular Function Stable: Yes Hydration Status Stable: Yes Pain Control Satisfactory: Yes Nausea and Vomiting Control Satisfactory: Yes Mental Status Recovered: Yes - COMMENTS/OBSERVATIONS Free Text/Narrative:: AM HGB=8.5, patient denies being symptomatic.
[2018-05-03] MEDS: Ibuprofen 600 MG Tab PO PRN (16:30)
[2018-05-04] MEDS: Ibuprofen 600 MG Tab PO PRN ×2 (03:47→21:03)
[2018-05-04] MEDS: Acetaminophen/oxyCODONE 325-5 MG Tab PO PRN ×3 (05:43→18:26)
--- NOTE | 2018-05-04 07:14 | PCM.PNPP ---
- General Info Date of Service: 05/04/18 Functional Status: Reports: Pain Controlled, Tolerating Diet, Ambulating, Urinating - Review of Systems General: Reports: No Symptoms Pulmonary: Reports: No Symptoms Cardiovascular: Reports: No Symptoms Gastrointestinal: Reports: Abdominal Pain (managed with medications) Genitourinary: Reports: No Symptoms Musculoskeletal: Reports: No Symptoms - Patient Data Vital Signs - Most Recent: Last Vital Signs Temp 36.3 C 05/04/18 03:46 Pulse 84 05/04/18 03:42 Resp 14 05/04/18 03:42 BP 121/67 05/04/18 03:42 Pulse Ox 94 L 05/04/18 03:42 Weight - Most Recent: 87.997 kg Med Orders - Current: Current Medications Diphenhydramine HCl (Benadryl) 25 mg IVPUSH Q6H PRN PRN Reason: Itching or Nausea Docusate Sodium (Colace) 100 mg PO Q12H PRN PRN Reason: Constipation Emollient Ointment (Lansinoh Hpa) 0 gm TOP ASDIRECTED PRN PRN Reason: Sore Nipples Ephedrine Sulfate (Ephedrine Sulfate) 5 mg IVPUSH SEECOMMENT PRN PRN Reason: Other Ibuprofen (Motrin) 600 mg PO Q6H PRN PRN Reason: mild pain or fever Last Admin: 05/04/18 03:47 Dose: 600 mg Naloxone HCl (Narcan) 0.1 mg IVPUSH SEECOMMENT PRN PRN Reason: Respiratory Depression Oxycodone/Acetaminophen (Percocet 325-5 Mg) 2 tab PO Q6H PRN PRN Reason: Pain (moderate 4-6) Last Admin: 05/04/18 05:43 Dose: 2 tab Discontinued Medications Acetaminophen (Tylenol) 650 mg PO NOW ONE Stop: 05/02/18 07:11 Last Admin: 05/02/18 08:20 Dose: 650 mg Bupivacaine HCl (Marcaine 0.5%) Confirm Administered Dose 30 ml .ROUTE .STK-MED ONE Stop: 05/02/18 07:11 Last Admin: 05/02/18 12:43 Dose: 18 ml Bupivacaine HCl (Marcaine 0.5%) Confirm Administered Dose 30 ml .ROUTE .STK-MED ONE Stop: 05/02/18 12:10 Cefazolin Sodium (Ancef) Confirm Administered Dose 2 gm .ROUTE .STK-MED ONE Stop: 05/02/18 12:38 Citric Acid/Sodium Citrate (Bicitra Solution) 30 ml PO ONETIME ONE Stop: 05/02/18 06:01 Last Admin: 05/02/18 12:17 Dose: 30 ml Citric Acid/Sodium Citrate (Bicitra Solution) Confirm Administered Dose 30 ml .ROUTE .STK-MED ONE Stop: 05/02/18 12:17 Last Admin: 05/02/18 18:55 Dose: Not Given Citric Acid/Sodium Citrate (Bicitra Solution) 30 ml PO ONETIME ONE Stop: 05/02/18 18:56 Last Admin: 05/02/18 18:59 Dose: Not Given Diphenhydramine HCl (Benadryl) 25 mg IV ONETIME ONE Stop: 05/02/18 07:11 Last Admin: 05/02/18 08:22 Dose: 25 mg Fentanyl (Sublimaze) Confirm Administered Dose 100 mcg .ROUTE .STK-MED ONE Stop: 05/02/18 13:11 Cefazolin Sodium/Dextrose 2 gm (/ Premix) 50 mls @ 100 mls/hr IV ONETIME ONE Stop: 05/02/18 07:29 Last Admin: 05/02/18 17:11 Dose: Not Given Lactated Ringer's (Ringers, Lactated) 1,000 mls @ 125 mls/hr IV ASDIRECTED OSMEL Last Admin: 05/02/18 07:01 Dose: 125 mls/hr Oxytocin/Lactated Ringer's (Pitocin In Lr 10 Units/1,000 Ml) 10 unit in 1,000 mls @ 100 mls/hr IV ASDIRECTED OSMEL; Protocol Sodium Chloride (Normal Saline) 1,000 mls @ 125 mls/hr IV ASDIRECTED OSMEL Lactated Ringer's (Ringers, Lactated) Confirm Administered Dose 1,000 mls @ as directed .ROUTE .STK-MED ONE Stop: 05/02/18 12:38 Ketorolac Tromethamine (Toradol) 30 mg IVPUSH Q6H OSMEL Stop: 05/03/18 04:01 Last Admin: 05/03/18 05:01 Dose: 30 mg Metoclopramide HCl (Reglan) 10 mg IVPUSH ONETIME ONE Stop: 05/02/18 06:01 Last Admin: 05/02/18 07:02 Dose: 10 mg Midazolam HCl (Versed 1 Mg/Ml) Confirm Administered Dose 2 mg .ROUTE .STK-MED ONE Stop: 05/02/18 13:01 Morphine Sulfate (Duramorph Pf) Confirm Administered Dose 1 mg .ROUTE .STK-MED ONE Stop: 05/02/18 08:16 Oxytocin (Pitocin) Confirm Administered Dose 10 unit .ROUTE .STK-MED ONE Stop: 05/02/18 12:38 Sodium Chloride (Saline Flush) 10 ml FLUSH ASDIRECTED PRN PRN Reason: Keep Vein Open - Interaction Infant Disposition, : in Room with Family Interaction: Holding Feeding: Attempted ; Nursed Fair/Poor Support Person: Significant Other - Recovery Exam Fundal Tone: Firm Fundal Level: 1 Fingerbreadths Below Umbilicus Fundal Placement: Midline Lochia Amount: Scant Lochia Color: Rubra/Red Perineum Description: Edematous, Other (see below) Other Perinuem Description: intact Episiotomy/Laceration: None Bladder Status: Nonpalpable Urinary Elimination: Voided - Exam General: Alert, Oriented, Cooperative Lungs: Clear to Auscultation, Normal Respiratory Effort Cardiovascular: Regular Rate, Regular Rhythm GI/Abdominal Exam: Soft, Tender (appropriate post op) Extremities: Normal Inspection Skin: Warm, Dry, Intact Wound/Incisions: Healing Well, No Drainage - Problem List & Annotations (1) 39 weeks gestation of SNOMED Code(s): 29569379 Code(s): Z3A.39 - 39 WEEKS GESTATION OF Status: Acute Current Visit: Yes (2) S/P repeat low transverse SNOMED Code(s): 181461615, 76288936, 560409786, 641528559, 207129117 Code(s): Z98.891 - HISTORY OF UTERINE SCAR FROM PREVIOUS SURGERY Status: Acute Current Visit: Yes - Problem List Review Problem List Initiated/Reviewed/Updated: Yes - Assessment Assessment:: 32 y/o POD#2 from RLTCS - Plan Plan:: * Routine cares * Encourage breast feeding * Not able to discharge mom today as baby is requiring further monitoring. Will discharge home tomorrow
[2018-05-04] MEDS: Docusate Sodium 100 MG Cap PO PRN (21:04)
[2018-05-05] MEDS: Acetaminophen/oxyCODONE 325-5 MG Tab PO PRN ×2 (00:12→06:49)
[2018-05-05] MEDS: Ibuprofen 600 MG Tab PO PRN ×2 (04:08→10:15)
[2018-05-05 08:06] VITALS: BP 95/74
[2018-05-05] MEDS: Docusate Sodium 100 MG Cap PO PRN (09:22)
--- NOTE | 2018-05-05 10:50 | PCM.DCSUM1 ---
Discharge Summary - Hospital Course Diagnosis: Stroke: No - Discharge Data Discharge Date: 05/05/18 Discharge Disposition: Home, Self-Care 01 Condition: Good - Patient Summary/Data Operative Procedure(s) Performed: repeat section - Patient Instructions Diet: Regular Diet as Tolerated Activity: No Lifting Over 10 Pounds Activity, Other: Pelvic Rest for 6 weeks Driving: Do Not Drive (While taking narcotics ) Showering/Bathing: May Shower, No Tub Bathing/Swimming Wound/Incision Care: Keep Operative Site/Wound Site Clean and Dry Notify Provider of: Fever, Increased Pain, Swelling and Redness, Drainage, Nausea and/or Vomiting - Discharge Plan *PRESCRIPTION DRUG MONITORING PROGRAM REVIEWED*: Yes *COPY OF PRESCRIPTION DRUG MONITORING REPORT IN PATIENT GRICELDA: Yes Prescriptions/Med Rec: Acetaminophen/oxyCODONE [Percocet 325-5 MG] 2 tab PO Q6H PRN #25 tablet PRN Reason: Pain (Moderate 4-6) Home Medications: Home Meds PNV95/Ferrous Fumarate/FA [ Tablet] 1 tab PO DAILY 05/02/18 [History] Acetaminophen/oxyCODONE [Percocet 325-5 MG] 2 tab PO Q6H PRN #25 tablet [Rx] Docusate Sodium [Colace] 100 mg PO Q12H PRN cap 05/03/18 [Rx] Ibuprofen [Motrin] 600 mg PO Q6H PRN tablet 05/03/18 [Rx] Referrals: Amara Davis MD [Physician] - (2 weeks for incision check ) - Discharge Summary/Plan Comment DC Time >30 min.: No - General Info Date of Service: 05/05/18 Functional Status: Reports: Pain Controlled - Review of Systems General: Reports: No Symptoms HEENT: Reports: No Symptoms Pulmonary: Reports: No Symptoms Cardiovascular: Reports: No Symptoms Gastrointestinal: Reports: No Symptoms Genitourinary: Reports: No Symptoms Musculoskeletal: Reports: No Symptoms Skin: Reports: No Symptoms Neurological: Reports: No Symptoms Psychiatric: Reports: No Symptoms - Patient Data Vitals - Most Recent: Last Vital Signs Temp 36.4 C 05/05/18 04:07 Pulse 76 05/05/18 07:49 Resp 14 05/05/18 07:49 BP 95/74 05/05/18 07:49 Pulse Ox 97 05/05/18 07:49 Weight - Most Recent: 87.997 kg I&O - Last 24 hours: Intake & Output 05/04/18 05/05/18 05/05/18 22:59 06:59 14:59 Intake Total 480 120 Balance 480 120 Lab Results - Last 24 hrs: Laboratory Results - last 24 hr 05/02/18 Range/Units 06:04 Blood Type A POSITIVE Gel Antibody Screen Negative Crossmatch See Detail Med Orders - Current: Current Medications Diphenhydramine HCl (Benadryl) 25 mg IVPUSH Q6H PRN PRN Reason: Itching or Nausea Docusate Sodium (Colace) 100 mg PO Q12H PRN PRN Reason: Constipation Last Admin: 05/05/18 09:22 Dose: 100 mg Emollient Ointment (Lansinoh Hpa) 0 gm TOP ASDIRECTED PRN PRN Reason: Sore Nipples Ephedrine Sulfate (Ephedrine Sulfate) 5 mg IVPUSH SEECOMMENT PRN PRN Reason: Other Ibuprofen (Motrin) 600 mg PO Q6H PRN PRN Reason: mild pain or fever Last Admin: 05/05/18 10:15 Dose: 600 mg Naloxone HCl (Narcan) 0.1 mg IVPUSH SEECOMMENT PRN PRN Reason: Respiratory Depression Oxycodone/Acetaminophen (Percocet 325-5 Mg) 2 tab PO Q6H PRN PRN Reason: Pain (moderate 4-6) Last Admin: 05/05/18 06:49 Dose: 2 tab Discontinued Medications Acetaminophen (Tylenol) 650 mg PO NOW ONE Stop: 05/02/18 07:11 Last Admin: 05/02/18 08:20 Dose: 650 mg Bupivacaine HCl (Marcaine 0.5%) Confirm Administered Dose 30 ml .ROUTE .STK-MED ONE Stop: 05/02/18 07:11 Last Admin: 05/02/18 12:43 Dose: 18 ml Bupivacaine HCl (Marcaine 0.5%) Confirm Administered Dose 30 ml .ROUTE .STK-MED ONE Stop: 05/02/18 12:10 Cefazolin Sodium (Ancef) Confirm Administered Dose 2 gm .ROUTE .STK-MED ONE Stop: 05/02/18 12:38 Citric Acid/Sodium Citrate (Bicitra Solution) 30 ml PO ONETIME ONE Stop: 05/02/18 06:01 Last Admin: 05/02/18 12:17 Dose: 30 ml Citric Acid/Sodium Citrate (Bicitra Solution) Confirm Administered Dose 30 ml .ROUTE .STK-MED ONE Stop: 05/02/18 12:17 Last Admin: 05/02/18 18:55 Dose: Not Given Citric Acid/Sodium Citrate (Bicitra Solution) 30 ml PO ONETIME ONE Stop: 05/02/18 18:56 Last Admin: 05/02/18 18:59 Dose: Not Given Diphenhydramine HCl (Benadryl) 25 mg IV ONETIME ONE Stop: 05/02/18 07:11 Last Admin: 05/02/18 08:22 Dose: 25 mg Fentanyl (Sublimaze) Confirm Administered Dose 100 mcg .ROUTE .STK-MED ONE Stop: 05/02/18 13:11 Cefazolin Sodium/Dextrose 2 gm (/ Premix) 50 mls @ 100 mls/hr IV ONETIME ONE Stop: 05/02/18 07:29 Last Admin: 05/02/18 17:11 Dose: Not Given Lactated Ringer's (Ringers, Lactated) 1,000 mls @ 125 mls/hr IV ASDIRECTED OSMEL Last Admin: 05/02/18 07:01 Dose: 125 mls/hr Oxytocin/Lactated Ringer's (Pitocin In Lr 10 Units/1,000 Ml) 10 unit in 1,000 mls @ 100 mls/hr IV ASDIRECTED OSMEL; Protocol Sodium Chloride (Normal Saline) 1,000 mls @ 125 mls/hr IV ASDIRECTED OSMEL Lactated Ringer's (Ringers, Lactated) Confirm Administered Dose 1,000 mls @ as directed .ROUTE .STK-MED ONE Stop: 05/02/18 12:38 Ketorolac Tromethamine (Toradol) 30 mg IVPUSH Q6H OSMEL Stop: 05/03/18 04:01 Last Admin: 05/03/18 05:01 Dose: 30 mg Metoclopramide HCl (Reglan) 10 mg IVPUSH ONETIME ONE Stop: 05/02/18 06:01 Last Admin: 05/02/18 07:02 Dose: 10 mg Midazolam HCl (Versed 1 Mg/Ml) Confirm Administered Dose 2 mg .ROUTE .STK-MED ONE Stop: 05/02/18 13:01 Morphine Sulfate (Duramorph Pf) Confirm Administered Dose 1 mg .ROUTE .STK-MED ONE Stop: 05/02/18 08:16 Oxytocin (Pitocin) Confirm Administered Dose 10 unit .ROUTE .STK-MED ONE Stop: 05/02/18 12:38 Sodium Chloride (Saline Flush) 10 ml FLUSH ASDIRECTED PRN PRN Reason: Keep Vein Open - Exam General: Reports: Alert, Oriented HEENT: Reports: Pupils Equal, Pupils Reactive, EOMI, Mucous Membr. Moist/[place] Neck: Reports: Supple Lungs: Reports: Clear to Auscultation, Normal Respiratory Effort Cardiovascular: Reports: Regular Rate, Regular Rhythm GI/Abdominal Exam: Normal Bowel Sounds, Soft, Non-Tender, No Organomegaly, No Distention, No Abnormal Bruit, No Mass, Pelvis Stable (Female) Exam: Normal External Exam, Normal Speculum Exam, Normal Bimanual Exam Back Exam: Reports: Normal Inspection, Full Range of Motion Extremities: Normal Inspection, Normal Range of Motion, Non-Tender, No Pedal Edema, Normal Capillary Refill Skin: Reports: Warm, Dry, Intact Wound/Incisions: Reports: Healing Well Neurological: Reports: No New Focal Deficit Psy/Mental Status: Reports: Alert, Normal Affect, Normal Mood
== END 2018-05-05 14:10 | disposition home or self-care (01) | DRG 765 ==
LOC: JD.OB 05:23
PROVIDERS: ADMIT Obstetrics & Gynecology; ATTEND Obstetrics & Gynecology
PROC: 10D00Z1 Extraction of Products of Conception, Low, Open Approach (ICD-10-PCS; principal; 2018-05-02)
PROC: 30233N1 Transfusion of Nonautologous Red Blood Cells into Peripheral Vein, Percutaneous Approach (ICD-10-PCS; 2018-05-02)
DX: O34.211 Maternal care for low transverse scar from previous cesarean delivery (principal); O98.32 Other infections with a predominantly sexual mode of transmission complicating childbirth; Z37.0 Single live birth; N85.8 Other specified noninflammatory disorders of uterus; Z3A.39 39 weeks gestation of pregnancy; O99.02 Anemia complicating childbirth; D50.9 Iron deficiency anemia, unspecified; A63.0 Anogenital (venereal) warts; Z87.442 Personal history of urinary calculi; Z87.440 Personal history of urinary (tract) infections
CPT/HCPCS: 01961; 36415; 36430; 59025; 80306; 81001; 85025; 85027; 86592; 86850; 86900; 86901; 86922; 94762; A9270-GY; G0480; J0690; J1200; J1885; J2250; J2274; J2590; J2765; J3010; J3490; J7120; P9016